=== PATIENT | female | born 1965 | race Caucasian/White ===

== ENCOUNTER 2016-11-04 11:30 | Emergency (ER) | payer BC ==
[~2016-11-04] VITALS: Ht 160 cm; Wt 119.1 kg
[~2016-11-04 11:30] MED LIST: MOTRIN SUSP20 MG/ML PO
[2016-11-04 11:41] VITALS: TEMP 97.9
[2016-11-04] MEDS ORDERED: CLARITIN 1010 MG/TAB PO (11:46)
[2016-11-04] MEDS ORDERED: PRINIVIL10 MG PO (13:11)
[2016-11-04 13:24] VITALS: BP 166/90; PULSE 98
== END 2016-11-04 13:35 | disposition home or self-care (01) ==
LOC: COL.ER 11:30
DX: R51 Headache (principal); I10 Essential (primary) hypertension